=== PATIENT | female | born 1965 | race Caucasian/White ===

== ENCOUNTER 2016-08-28 12:45 | Emergency (ER) | payer OTHER, MEDICAID ==
[2016-08-28 13:18] VITALS: BP 155/101; PULSE 78; RESP 16; TEMP 99.1; O2SAT 99
== END 2016-08-28 14:07 | disposition left against medical advice (07) ==
DX: Z53.21 Procedure and treatment not carried out due to patient leaving prior to being seen by health care provider (principal)

== ENCOUNTER 2016-08-28 15:32 | Emergency (ER) | payer OTHER, MEDICAID ==
[2016-08-28 15:45] VITALS: BP 145/101; PULSE 95; RESP 16; TEMP 97.5; O2SAT 95
[2016-08-28] MEDS ORDERED: ONDANSETRON DISINTEGRATING 4 MG TAB PO ONE (16:18)
--- NOTE | 2016-08-28 16:20 | EDPHY ---
H & P Stated Complaint: WOULD LIKE REFILLS ON NARCOTICS Time Seen by Provider: 08/28/16 16:08 HPI/ROS: Chief complaint: Narcotic medication refill History of present illness: This is a 51-year-old female who presents to the emergency department requesting a refill of her narcotic medications. She states she is on these medications chronically for chronic pain. She was followed by a pain management doctor who moved. She saw a new pain management doctor she did not feel was managing her properly. She did follow up with her primary care doctor who gave her a bridge prescription until she can be seen back in pain management clinic next week. She has run out of these. She feels nauseous. She would like a refill. - Personal History LMP (Females 10-55): Irregular Current Tetanus/Diphtheria Vaccine: Unsure Current Tetanus Diphtheria and Acellular Pertussis (TDAP): Unsure - Medical/Surgical History Hx Asthma: No Hx Chronic Respiratory Disease: No Hx Diabetes: No Hx Cardiac Disease: No Hx Renal Disease: No Hx Cirrhosis: No Hx Alcoholism: No Hx HIV/AIDS: No Hx Splenectomy or Spleen Trauma: No Other PMH: chronic L shoulder & neck pain- r/t injuries, bipolar/[facility] - Social History Smoking Status: Heavy smoker - Physical Exam Exam: General: Alert, nontoxic Skin: No rashes. Warm, pink, dry. Neurologic: Alert and oriented. Ambulating without difficulty. Psychiatric. Mild agitation. Constitutional: Initial Vital Signs Temperature (C) 36.4 C 08/28/16 15:43 Heart Rate 95 08/28/16 15:43 Respiratory Rate 16 08/28/16 15:43 Blood Pressure 145/101 H 08/28/16 15:43 O2 Sat (%) 95 08/28/16 15:43 O2 Delivery Mode Room Air Allergies/Adverse Reactions: carbamazepine [From Tegretol] Allergy (Intermediate, Verified 06/13/16 11:36) Hives clarithromycin [From Biaxin] Allergy (Verified 06/13/16 11:36) ENVIRONMENTAL Allergy (Mild, Uncoded 04/03/15 19:32) Other-Enter Comments Home Medications: Medication Instructions Recorded Carisoprodol [SOMA] 350 mg PO TID 01/19/11 Topiramate [Topamax 100MG (*)] 200 mg PO HS 01/19/11 valACYclovir [Valtrex (*)] 1,000 mg PO DAILY 01/19/11 lamoTRIgine [LamICTAL 100 MG (*)] 200 mg PO HS 02/28/12 Armodafinil [Nuvigil 250mg] 250 mg PO BID 02/24/16 Linaclotide [Linzess] 290 mcg PO DAILY 02/24/16 Niacin [Niacin 500 mg (*)] 500 mg PO DAILY 02/24/16 Rizatriptan Benzoate [Rizatriptan] 10 mg PO DAILY PRN 02/24/16 lamoTRIgine [LaMICtal] 50 mg PO DAILY 02/24/16 oxyCODONE CR [Oxycontin] 15 mg PO BID 02/24/16 oxyCODONE IR [Oxycodone Ir (*)] 15 mg PO TID PRN 02/24/16 Carisoprodol [Soma (*)] 350 mg PO TID #20 tab 02/26/16 Nexium 06/13/16 Risperdal 06/13/16 predniSONE 20 mg PO DAILY 4 Days 06/13/16 Medical Decision Making ED Course/Re-evaluation: Patient seen under the supervision of my secondary supervising physician Dr. Juan Jose Marrero. Patient presents requesting a refill of her narcotic pain medicine. I have discussed with her that we do not refill chronic narcotic pain medications in the emergency department. She will need to follow-up with her pain management doctor. Prior to getting her discharge paper she eloped. - Data Points Medications Given: Discontinued Medications Ondansetron HCl (Zofran Odt) 4 mg PO EDNOW ONE Stop: 08/28/16 16:19 Last Admin: 08/28/16 16:22 Dose: 4 mg Departure - Departure Disposition: Home, Routine, Self-Care Clinical Impression: Encounter for medication refill Condition: Good Instructions: Narcotic Pain Management (ED) Additional Instructions: We do not fill chronic pain medicines in the emergency department Follow-up with your primary care doctor and pain management doctor next week If you feel symptoms are worsening or new symptoms develop please return to the emergency department for recheck Referrals: Dejah Chapa PA [Primary Care Provider] - As per Instructions
== END 2016-08-28 16:25 | disposition home or self-care (01) ==
DX: Z76.0 Encounter for issue of repeat prescription (principal); F17.200 Nicotine dependence, unspecified, uncomplicated

== ENCOUNTER → 2018-05-30 | Outpatient (CLI) | payer OTHER, MEDICAID | LOC: FIMAGING 16:24 | PROVIDERS: ATTEND Internal Medicine Nephrology | DX: N18.3 Chronic kidney disease, stage 3 (moderate) (principal) ==